=== PATIENT | female | born 1965 | race Caucasian/White ===

== ENCOUNTER 2017-11-24 17:00 | Emergency (ER) | payer BC ==
[~2017-11-24] VITALS: Ht 162.6 cm; Wt 77.1 kg
[2017-11-24] MEDS ORDERED: HYDROCODONE-AP1 EAC6 PO (18:02)
[2017-11-24 18:15] VITALS: BP 134/70
== END 2017-11-24 18:16 | disposition home or self-care (01) ==
LOC: M.ERS 17:00
DX: S30.0XXA Contusion of lower back and pelvis, initial encounter (principal); Z88.0 Allergy status to penicillin; W10.8XXA Fall (on) (from) other stairs and steps, initial encounter; Y93.89 Activity, other specified; Y92.89 Other specified places as the place of occurrence of the external cause; Y99.8 Other external cause status

== ENCOUNTER → 2020-10-09 | Outpatient (CLI) | payer BC ==
[~2020-10-09] MED LIST: HYDROCODONE-AP1 EAC6 PO
[2020-10-09 07:14] LABS: ABSOLUTE BASOPHILS 0.1 thou/uL (0.0-0.2); ABSOLUTE EOSINOPHILS 0.1 thou/uL (0.0-0.7); ABSOLUTE LYMPHOCYTES 1.2 thou/uL (0.8-5.3); ABSOLUTE MONOCYTES 0.3 thou/uL (0.0-1.2); ABSOLUTE NEUTROPHILS 5.7 thou/uL (1.6-8.1); BASOPHILS 0.7 %; EOSINOPHILS 0.9 %; HEMATOCRIT 42.4 % (37.0-47.0); HEMOGLOBIN 14.3 gm/dL (12.0-15.0); LYMPHOCYTES 16.8 %; MCH 30.5 pg (26.0-34.0); MCHC 33.8 g/dL (28.0-37.0); MCV 90.3 fL (80.0-100.0); MONOCYTES 3.7 %; MPV 8.3 fl. (7.2-11.1); NUCLEATED RBCS 0 /100WBC; PLATELET COUNT* 344 thou/uL (150-400); POLYS 77.9 %; RDW-CV 12.5 % (10.5-14.5); WBC 7.3 thou/uL (4.0-11.0)
[2020-10-09 07:26] LABS: ALBUMIN 3.6 g/dL (3.4-5.0); CALCIUM 9.4 mg/dL (8.5-10.1); CREATININE 0.9 mg/dL (0.6-1.3); POTASSIUM 4.5 mmol/L (3.5-5.1); TOTAL BILIRUBIN 0.3 mg/dL (<0.1-1.0); TOTAL PROTEIN 7.9 g/dL (6.4-8.2)
== END ==
LOC: M.LAB 06:51
DX: R63.5 Abnormal weight gain (principal)